=== PATIENT | male | born 1955 | race Caucasian/White ===

== ENCOUNTER 2017-03-13 12:48 | Emergency (ER) | payer BC, OTHER ==
[~2017-03-13] VITALS: Ht 177.8 cm; Wt 80.0 kg
[~2017-03-13 12:48] MED LIST: AMOX875T20 PO; Z.0.NO CURRENT MEDS
[2017-03-13 12:50] VITALS: BP 126/73; PULSE 106; RESP 13; TEMP 98.5; O2SAT 95
[2017-03-13 13:57] LABS: AUTOMATED NEUTROPHIL # 5.5 TH/MM3 (1.8-7.7); BASOPHIL % 0.4 % (0.0-2.0); EOSINOPHIL # 0.1 TH/MM3 (0-0.4); EOSINOPHIL % 1.4 % (0.0-4.0); HEMATOCRIT 45.2 % (39.0-51.0); HEMO FLAGS DIFF FINAL; LYMPH % 23.5 % (9.0-44.0); LYMPHOCYTE # 1.9 TH/MM3 (1.0-4.8); MEAN CELL VOLUME 97.8 FL (80.0-100.0); MEAN CORPUSCULAR HEMOGLOBIN 32.6 PG (27.0-34.0); MEAN CORPUSCULAR HGB CONC 33.4 % (32.0-36.0); MONO % 5.8 % (0.0-8.0); NEUT % 68.9 % (16.0-70.0); PLATELET COUNT 288 TH/MM3 (150-450); RED BLOOD COUNT 4.62 MIL/MM3 (4.50-5.90); RED CELL DISTRIBUTION WIDTH 14.6 % (11.6-17.2); WHITE BLOOD COUNT 7.9 TH/MM3 (4.0-11.0)
--- NOTE | 2017-03-13 13:59 | PD ---
HPI Chief Complaint: Psychiatric Symptoms Time Seen by Provider: 13:57 Travel History International Travel<30 days: No Contact w/Intl Traveler<30days: No Traveled to known affect area: No History of Present Illness HPI 61-year-old male that presents to the ED for evaluation of psychiatric illness. Patient has a chronic history of alcohol abuse. Patient states that he has been having history of depression but takes no medications for it. Per patient he deals with it with alcohol. He drinks pretty frequently. Per Rivera act patient apparently was suicidal today and was found to have alcohol on the gum next to him. Patient apparently had the thought of shooting himself. He apparently told this to his girlfriend who called the police and he got Rivera acted because of this. He cannot really tell is what made it worse. Unclear as to how long they have been going with this appears to be chronic. No chest pain or shortness of breath. No other medical issues. Takes no medications. PFSH Past Medical History Blood Disorders: No Depression: Yes (never been diagnosed) Cancer: Yes (SKIN CA) Diminished Hearing: No Endocrine: No Genitourinary: No Hypertension: Yes (OFF AND ON. NOT ON ANY MEDS FOR IT ) Immune Disorder: No Musculoskeletal: No Neurologic: No Psychiatric: Yes Reproductive: No Respiratory: No Immunizations Current: Yes Past Surgical History Genitourinary Surgery: Yes (HEMORROIDECTOMY) Other Surgery: Yes (FRACTURED SKULL AND HEMROIDECTOMY) Social History Alcohol Use: No Tobacco Use: Yes (1 PPD) Substance Use: Yes Allergies-Medications (Allergen,Severity, Reaction): Coded Allergies: No Known Allergies (Verified , 03/25/12) Reported Meds & Prescriptions Reported Meds & Active Scripts Active Amoxicillin/Clavulanate P (Amoxicillin/Clavulanate Potassium) 875 Mg Tab 875 Mg PO BID 10 Days Reported No Current Meds (Miscellaneous Medication) Misc Review of Systems Except as stated in HPI: all other systems reviewed are Neg Physical Exam Narrative GENERAL: SKIN: Warm and dry. HEAD: Atraumatic. Normocephalic. EYES: Pupils equal and round. No scleral icterus. No injection or drainage. ENT: No nasal bleeding or discharge. Mucous membranes pink and moist. Tongue is midline. No uvula deviation. NECK: Trachea midline. No JVD. CARDIOVASCULAR: Regular rate and rhythm. No murmurs, S3, S4. RESPIRATORY: No accessory muscle use. Clear to auscultation. Breath sounds equal bilaterally. GASTROINTESTINAL: Abdomen soft, non-tender, nondistended. Hepatic and splenic margins not palpable. MUSCULOSKELETAL: Extremities without clubbing, cyanosis, or edema. No obvious deformities. Full range of motion of the upper and lower extreme is bilaterally. 2+ pulses bilaterally. NEUROLOGICAL: Awake and alert. No obvious cranial nerve deficits. Motor grossly within normal limits. Five out of 5 muscle strength in the arms and legs. Normal speech. PSYCHIATRIC: Appropriate mood and affect; insight and judgment normal. Data Data Last Documented VS Vital Signs Date Time Temp Pulse Resp B/P Pulse Ox O2 Delivery O2 Flow Rate FiO2 03/13/17 12:50 98.5 106 13 126/73 95 Orders Complete Blood Count With Diff (03/13/17 13:13) Comprehensive Metabolic Panel (03/13/17 13:13) Psych Screen (03/13/17 13:13) Drug Screen, Random Urine (03/13/17 13:13) Alcohol (Ethanol) (03/13/17 13:13) Salicylates (Aspirin) (03/13/17 13:13) Tylenol (Acetaminophen) (03/13/17 13:13) Labs Laboratory Tests Test 03/13/17 03/13/17 13:26 13:40 White Blood Count 7.9 TH/MM3 Red Blood Count 4.62 MIL/MM3 Hemoglobin 15.1 GM/DL Hematocrit 45.2 % Mean Corpuscular Volume 97.8 FL Mean Corpuscular Hemoglobin 32.6 PG Mean Corpuscular Hemoglobin 33.4 % Concent Red Cell Distribution Width 14.6 % Platelet Count 288 TH/MM3 Mean Platelet Volume 6.7 FL Neutrophils (%) (Auto) 68.9 % Lymphocytes (%) (Auto) 23.5 % Monocytes (%) (Auto) 5.8 % Eosinophils (%) (Auto) 1.4 % Basophils (%) (Auto) 0.4 % Neutrophils # (Auto) 5.5 TH/MM3 Lymphocytes # (Auto) 1.9 TH/MM3 Monocytes # (Auto) 0.5 TH/MM3 Eosinophils # (Auto) 0.1 TH/MM3 Basophils # (Auto) 0.0 TH/MM3 CBC Comment DIFF FINAL Differential Comment Sodium Level 143 MEQ/L Potassium Level 3.9 MEQ/L Chloride Level 109 MEQ/L Carbon Dioxide Level 21.8 MEQ/L Anion Gap 12 MEQ/L Blood Urea Nitrogen 14 MG/DL Creatinine 1.20 MG/DL Estimat Glomerular Filtration 62 ML/MIN Rate Random Glucose 75 MG/DL Calcium Level 8.2 MG/DL Total Bilirubin 0.4 MG/DL Aspartate Amino Transf 41 U/L (AST/SGOT) Alanine Aminotransferase 56 U/L (ALT/SGPT) Alkaline Phosphatase 89 U/L Total Protein 7.8 GM/DL Albumin 4.1 GM/DL Salicylates Level 3.2 MG/DL Acetaminophen Level LESS THAN 2.0 MCG/ML Ethyl Alcohol Level 233 MG/DL Urine Opiates Screen NEG Urine Barbiturates Screen NEG Urine Amphetamines Screen NEG Urine Benzodiazepines Screen POS Urine Cocaine Screen NEG Urine Cannabinoids Screen NEG MDM Medical Decision Making Medical Screen Exam Complete: Yes Emergency Medical Condition: Yes Medical Record Reviewed: Yes Interpretation(s) CBC & BMP Diagram 03/13/17 13:26 alcohol elevated tox positive for benzos Differential Diagnosis Depression versus suicidal ideation versus anxiety versus adjustment disorder versus mood disorder versus bipolar disorder versus schizophrenia versus paranoid disorder versus psychosis versus substance abuse versus alcohol abuse versus alcohol induced psychosis versus homicidality addition versus cutting versus personality disorder Narrative Course 61-year-old male that presents to the ED for evaluation of psychiatric illness. No sign of acute medical distress. Labs were drawn. Patient will be medically clear pending labs. Okay to be seen by psych. Mental health screening was discussed with the patient. Diagnosis Primary Impression: Suicidal ideation Additional Impression: Alcohol intoxication Qualified Code: F10.920 - Alcoholic intoxication without complication Archie Vigil Mar 13, 2017 13:59
[2017-03-13 14:18] LABS: ALKALINE PHOSPHATASE 89 U/L (45-117); ALT (GPT) 56 U/L (12-78); TOTAL BILIRUBIN ADULT 0.4 MG/DL (0.2-1.0)
[2017-03-13 14:23] LABS: ANION GAP 12 MEQ/L (5-15); AST (GOT) 41 U/L (15-37); BICARBONATE 21.8 MEQ/L (21.0-32.0); BLOOD UREA NITROGEN 14 MG/DL (7-18); CHLORIDE 109 MEQ/L (98-107); GLOMERULAR FILTRATION RATE 62 ML/MIN (>89); SODIUM (NA) 143 MEQ/L (136-145)
[2017-03-13 14:28] LABS: POTASSIUM 3.9 MEQ/L (3.5-5.1)
[2017-03-13 14:29] LABS: ACETAMINOPHEN LESS THAN 2.0 MCG/ML (10.0-30.0); ALCOHOL 233 MG/DL (0-5)
[2017-03-13 22:13] VITALS: BP 172/92; PULSE 89; RESP 17; O2SAT 96
[2017-03-14 02:03] VITALS: BP 180/87; PULSE 84; RESP 18; O2SAT 96
[2017-03-14 06:26] VITALS: BP 169/85; PULSE 90; RESP 18; O2SAT 96
[2017-03-14 10:06] VITALS: BP 150/85; PULSE 101; RESP 20; O2SAT 100
[2017-03-14 11:16] VITALS: BP 150/85; PULSE 101; RESP 20; O2SAT 100
--- NOTE | 2017-03-14 11:20 | PD ---
History of Present Illness Chief Complaint: Psychiatric Symptoms Time Seen by Provider: 11:00 Travel History International Travel<30 Days: No Contact w/Intl Traveler<30days: No Known affected area: No Legal Status Legal Status: Rivera Act Rivera Act Signed By: Velvet Thomas Rivera Act Comment: BA signed by: AXEL BERMUDEZ Badge#[id number], Case#[id number] History of Present Illness: 61-year-old male brought in under a Rivera act last evening for making suicidal threats. Patient was apparently contemplating shooting himself with a gun and he owns several of them. He was found passed out due to alcohol abuse last night. 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 Patient's alcohol level last evening was 233. He was also positive for benzodiazepines. He is no longer intoxicated and he is verbally terra for safety. He has been to [facility] in the past and feels he needs to go back there. He denies any suicidal or homicidal ideation, plan or intent. He does admit to blacking out last night due to his alcohol ingestion and does admit to having an alcohol problem. This physician feels least restrictive alternative applies and the patient is competent to contract for safety. PFSH Past Medical History Medical History: Denies Significant Hx Blood Disorders: No Depression: Yes (never been diagnosed) Cancer: Yes (SKIN CA) Diminished Hearing: No Endocrine: No Genitourinary: No Hypertension: Yes (OFF AND ON. NOT ON ANY MEDS FOR IT ) Immune Disorder: No Musculoskeletal: No Neurologic: No Psychiatric: Yes Reproductive: No Respiratory: No Immunizations Current: Yes Past Surgical History Genitourinary Surgery: Yes (HEMORROIDECTOMY) Other Surgery: Yes (FRACTURED SKULL AND HEMROIDECTOMY) Psychiatric History Psychiatric History Hx Psychiatric Treatment: [facility] [place] 06/18 -06/20/2010 History of Inpatient Treatment: Yes Guns or firearms in home: Yes Social History Hx Alcohol Use: No Hx Tobacco Use: Yes (1 PPD) Hx Substance Use: Yes Substance Use Type: Alcohol, Synth Opiates-Pain Pills, Other Other Substances Used: Pt denies any prior substance abuse tx Hx of Substance Use Treatment: Yes Allergies-Medications (Allergen,Severity, Reaction): Coded Allergies: No Known Allergies (Verified , 03/25/12) Reported Meds & Prescriptions Reported Meds & Active Scripts Active Review of Systems Except as stated in HPI: all other systems reviewed are Neg Exam Alert: Yes [place]: Person, Place, Date, Situation Mood: Calm Affect: Appropriate Speech: Clear, Logical Eye Contact: Normal Memory Intact: Immediate, Recent, Remote Insight/Judgement Adequate MDM Medical Decision Making Medical Record Reviewed: Yes Assessment/Plan 61-year-old male who threatened him shooting himself in front of his girlfriend. Patient was intoxicated at the time and now states he would not harm himself or anyone else. No suicidal or homicidal ideation, plan or intent. Cognition is intact. No psychosis. Patient verbally terra for safety and is competent to do so. Patient willing to return to AA meetings and stop drinking. Case was discussed with patient's nurse as well. Orders Complete Blood Count With Diff (03/13/17 13:13) Comprehensive Metabolic Panel (03/13/17 13:13) Psych Screen (03/13/17 13:13) Drug Screen, Random Urine (03/13/17 13:13) Alcohol (Ethanol) (03/13/17 13:13) Salicylates (Aspirin) (03/13/17 13:13) Tylenol (Acetaminophen) (03/13/17 13:13) Diet Regular Basic (03/13/17 Dinner) Diet Regular Basic (03/14/17 Breakfast) Results Vital Signs Date Time Temp Pulse Resp B/P Pulse Ox O2 Delivery O2 Flow Rate FiO2 03/14/17 10:06 101 20 150/85 100 Room Air 03/14/17 06:26 90 18 169/85 96 Room Air 03/14/17 02:03 84 18 180/87 96 Room Air 03/13/17 22:13 89 17 172/92 96 Room Air 03/13/17 12:50 98.5 106 13 126/73 95 Laboratory Tests Test 03/13/17 03/13/17 13:26 13:40 White Blood Count 7.9 Red Blood Count 4.62 Hemoglobin 15.1 Hematocrit 45.2 Mean Corpuscular Volume 97.8 Mean Corpuscular Hemoglobin 32.6 Mean Corpuscular Hemoglobin 33.4 Concent Red Cell Distribution Width 14.6 Platelet Count 288 Mean Platelet Volume 6.7 Neutrophils (%) (Auto) 68.9 Lymphocytes (%) (Auto) 23.5 Monocytes (%) (Auto) 5.8 Eosinophils (%) (Auto) 1.4 Basophils (%) (Auto) 0.4 Neutrophils # (Auto) 5.5 Lymphocytes # (Auto) 1.9 Monocytes # (Auto) 0.5 Eosinophils # (Auto) 0.1 Basophils # (Auto) 0.0 CBC Comment DIFF FINAL Differential Comment Sodium Level 143 Potassium Level 3.9 Chloride Level 109 Carbon Dioxide Level 21.8 Anion Gap 12 Blood Urea Nitrogen 14 Creatinine 1.20 Estimat Glomerular Filtration 62 Rate Random Glucose 75 Calcium Level 8.2 Total Bilirubin 0.4 Aspartate Amino Transf 41 (AST/SGOT) Alanine Aminotransferase 56 (ALT/SGPT) Alkaline Phosphatase 89 Total Protein 7.8 Albumin 4.1 Salicylates Level 3.2 Acetaminophen Level LESS THAN 2.0 Ethyl Alcohol Level 233 Urine Opiates Screen NEG Urine Barbiturates Screen NEG Urine Amphetamines Screen NEG Urine Benzodiazepines Screen POS Urine Cocaine Screen NEG Urine Cannabinoids Screen NEG Diagnosis Primary Impression: Adjustment disorder with mixed disturbance of emotions and conduct Additional Impression: Alcohol abuse Problem Qualifiers Maurice Borrero MD Mar 14, 2017 11:20
== END 2017-03-14 12:44 | disposition home or self-care (01) ==
LOC: NEPJ 12:48
DX: Z02.89 Encounter for other administrative examinations (principal); F32.9 Major depressive disorder, single episode, unspecified; F43.20 Adjustment disorder, unspecified; R45.851 Suicidal ideations; F10.920 Alcohol use, unspecified with intoxication, uncomplicated; F17.290 Nicotine dependence, other tobacco product, uncomplicated
CPT/HCPCS: 80053; 80307; 85025; 99283